=== PATIENT | female | born 1990 | race Caucasian/White ===

== ENCOUNTER 2019-02-24 18:26 | Emergency (ER) | payer MEDICAID ==
[~2019-02-24] VITALS: Ht 157.5 cm; Wt 60.3 kg
[2019-02-24 19:17] VITALS: Ht 157.5 cm; Wt 60.3 kg
[2019-02-24 21:14] VITALS: BP 110/68
== END 2019-02-24 21:14 | disposition home or self-care (01) ==
LOC: ED 18:26
DX: J11.1 Influenza due to unidentified influenza virus with other respiratory manifestations (principal); E03.9 Hypothyroidism, unspecified
CPT/HCPCS: 87804